=== PATIENT | male | born 1985 | race Caucasian/White ===

== ENCOUNTER → 2016-10-20 | Outpatient (CLI) | payer OTHER | LOC: SLEEP LAB 20:14 | DX: G47.33 Obstructive sleep apnea (adult) (pediatric) (principal); G47.34 Idiopathic sleep related nonobstructive alveolar hypoventilation | CPT/HCPCS: 95811 ==

== ENCOUNTER 2019-05-06 11:21 | Observation (INO) ==
[~2019-05-06 11:21] MED LIST: LIDOCAINE W/ SODIUM BICARB 0.5 ML SYR SUBD PRN; Lactated Ringers 1,000 ML PRIMARY IV SCH
[2019-05-06] MEDS ORDERED: Lactated Ringers 1,000 ML PRIMARY IV ONE (11:27)
[2019-05-06] MEDS ORDERED: LIDOCAINE W/ SODIUM BICARB 0.5 ML SYR ONE (11:27)
[2019-05-06] MEDS ORDERED: LIDOCAINE HCL 1%/EPI 1:100,000 - 20 ML VIAL ONE (12:55)
[2019-05-06] MEDS ORDERED: SUCCINYLCHOLINE CHLORIDE 20 MG/1 ML - 10 ML ONE (12:56)
[2019-05-06] MEDS ORDERED: MIDAZOLAM HCL 2 MG/2 ML VIAL ONE (12:57)
[2019-05-06] MEDS ORDERED: fentaNYL Inj 100 MCG/2 ML VIAL ONE (12:57)
[2019-05-06] MEDS ORDERED: DEXAMETHASONE PF 10 MG/1 ML VIAL ONE (13:05)
[2019-05-06] MEDS ORDERED: OXYMETAZOLINE 0.05% 15 ML NASAL SPRAY ONE (13:10)
[2019-05-06] MEDS ORDERED: ONDANSETRON 4 MG/2 ML VIAL ONE (13:26)
[2019-05-06] MEDS ORDERED: GLYCOPYRROLATE 0.2 MG/1 ML VIAL ONE (13:41)
[2019-05-06] MEDS ORDERED: Bacitracin Oint 14.2 gm tube 14 APPLIC/14.2 GM TUBE TOPICAL ONE (13:41)
[2019-05-06] MEDS ORDERED: ceFAZolin 1 GM VIAL IVP ONE (13:43)
[2019-05-06] MEDS ORDERED: HYDROcodone/APAP 7.5/325/15ml 15 ML CUP ONE (15:01)
[2019-05-06] MEDS ORDERED: HYDROcodone/APAP 7.5/325/15ml 15 ML CUP PO ONE ×2 (15:03→15:46)
[2019-05-06] MEDS ORDERED: Lactated Ringers 1,000 ML PRIMARY IV SCH (15:46)
[2019-05-06] MEDS ORDERED: ONDANSETRON 4 MG/2 ML VIAL IVP PRN (15:46)
[2019-05-06] MEDS ORDERED: DIPH,PERTUSS,TET(ADACEL) VAC/PF 0.5 ML (Tdap) IM ONE (16:58)
[2019-05-06] MEDS: HYDROcodone/APAP 7.5/325/15ml 15 ML CUP PO PRN (19:09)
[2019-05-07] MEDS: HYDROcodone/APAP 7.5/325/15ml 15 ML CUP PO PRN ×2 (02:28→07:55)
[2019-05-07 04:33] VITALS: TEMP 97.4
[2019-05-07 06:57] VITALS: BP 132/72; RESP 18
[2019-05-07 09:17] VITALS: O2SAT 92
== END 2019-05-07 09:36 | disposition home or self-care (01) ==
LOC: MED/SURG → OR 11:21 → MED/SURG 11:21 → OPS 11:22 → MED/SURG 16:20
PROVIDERS: ADMIT Otolaryngology; ATTEND Otolaryngology